=== PATIENT | male | born 1985 | race Caucasian/White ===

== ENCOUNTER 2019-02-26 11:12 | Emergency (ER) | payer MEDICAID, SELFPAY ==
[2019-02-26 11:13] VITALS: BP 108/63; PULSE 78; RESP 17; TEMP 36.8; O2SAT 99; BMI 23.8
--- NOTE | 2019-02-26 11:30 | RAD_ITS ---
STUDY: X-RAY - UNILATERAL RIBS ( RIGHT ) WITH CHEST REASON FOR EXAM: Male, 33 years old. Anterolateral rib pain following a fall. TECHNIQUE - RIBS: 5 view(s) of the ribs. TECHNIQUE - CHEST: Single PA view of the chest. COMPARISON: None. FINDINGS - RIBS: Normal visualized ribs without a demonstrated fracture. FINDINGS - CHEST: Hyperinflation. There is no demonstrated pleural abnormality. Normal size heart. Normal mediastinum and eriberto. Normal visualized pulmonary arteries. Normal visualized aortic arch and descending thoracic aorta. Normal visualized thoracic spine. Normal visualized ribs, clavicles, and shoulders. There is no demonstrated abnormality of the visualized soft tissue structures of the upper abdomen. RAD/Ribs Uni Min 3V w/PA Chest IMPRESSION: RIBS: Normal x-ray examination of the ribs. CHEST: Normal x-ray examination of the chest. Electronically Signed: Jairo Saenz, at 12:37 EDT , Service support ,
--- NOTE | 2019-02-26 11:31 | ED.VISSUMM ---
- ER Visit Summary Date of Service: 02/26/19 Chief Complaint: Right rib pain History of Present Illness: The patient is a 33 M presenting with right-sided rib pain. This started 5 days ago. Patient states he was skateboarding and fell. He hit his right side on the railing. He did not hit his head or lose consciousness. He complains of persistent pain right ribs. Denies abdominal pain. He has not taken any medication at home. Denies other complaints. Physical Examination: Vitals are stable. Patient is afebrile. Alert no acute distress. HEENT exam is unremarkable. Neck is nontender Lungs are clear and equal bilaterally. Right mid lateral rib tenderness with no crepitus Heart is regular rate and rhythm. Abdomen is soft nontender nondistended. No guarding or rebound Extremities are unremarkable. Skin is warm and dry. Remainder of exam is unremarkable. Emergency Department Course and Treatment: Right rib series shows normal x-ray examination of the ribs. CHEST: Normal x-ray examination of the chest. Patient is given an incentive spirometer. He is advised to follow-up with his primary care physician. He is given a prescription for Naprosyn. Advised to return to the ED for worsening complaints. Disposition: Discharge home Impression: Right rib contusion This note was generated with [employer] dictation software. It may contain incorrect words, spelling, and punctuation that were not noted in review of the chart prior to signing ED Disposition - Plan for ED Patient: Instructions: Chest Wall Contusion Prescriptions: Naproxen [Naprosyn] 500 mg PO BID PRN #20 tab Prescription Printed Referrals: [facility] Doctor,Out of [NON-STAFF] -
--- NOTE | 2019-02-26 13:19 | ED.DEP ---
ED Disposition - Plan for ED Patient: Instructions: Chest Wall Contusion Prescriptions: Naproxen [Naprosyn] 500 mg PO BID PRN #20 tablet Referrals: [facility] Doctor,Out of [NON-STAFF] -
[2019-02-26 13:26] VITALS: BP 121/77; PULSE 62; RESP 15; O2SAT 99
== END 2019-02-26 13:27 | disposition home or self-care (01) ==
LOC: ED 11:40
PROVIDERS: Emergency Provider Emergency Medicine
DX: S20.211A Contusion of right front wall of thorax, initial encounter (principal); V00.131A Fall from skateboard, initial encounter; Y93.51 Activity, roller skating (inline) and skateboarding; Y92.9 Unspecified place or not applicable; Y99.9 Unspecified external cause status; Z72.0 Tobacco use
CPT/HCPCS: 71101; 99282